=== PATIENT | female | born 2000 | race Caucasian/White ===

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

== ENCOUNTER 2018-01-17 15:23 | Emergency (ER) | payer MEDICAID ==
[2018-01-17 15:37] VITALS: BP 111/61
--- NOTE | 2018-01-17 17:05 | EDM.PDOC ---
ED HPI GENERAL MEDICAL PROBLEM - General Chief Complaint: General Stated Complaint: LIGHTHEADED;MIGRAINE Time Seen by Provider: 01/17/18 16:50 Source of Information: Reports: Patient, Old Records, RN History Limitations: Reports: No Limitations - History of Present Illness INITIAL COMMENTS - FREE TEXT/NARRATIVE: 17 yo female in her first trimester of presents with vertigo earlier today. Is feeling a little better now. Didn't try the clinic. Onset: Today Onset Date: 01/17/18 Duration: Minutes:, Waxing/Waning Location: Reports: Head Severity: Mild Improves with: Reports: Other (? time) Worsens with: Reports: Movement Context: Reports: Other () Associated Symptoms: Reports: Nausea/Vomiting (no vomiting). Denies: Fever/ Chills, Syncope Treatments CLASSIFICATIONS OFFICER CC/CM: Reports: Other (see below) (none) - Related Data Allergies Allergy/AdvReac Type Severity Reaction Status Date / Time No Known Allergies Allergy Verified 01/17/18 16:15 Home Meds: Home Meds Vits #93/Iron Fum/FA [ Formula Tablet] 1 tab PO DAILY 01/17/18 [History] hydrOXYzine Pamoate [Vistaril] 25 mg PO Q6H PRN #14 cap 01/17/18 [Rx] valACYclovir HCl [Valtrex] 1 tab PO BID 01/17/18 [History] Past Medical History - Past Health History Medical/Surgical History: Denies Medical/Surgical History HEENT History: Reports: None Cardiovascular History: Reports: None Respiratory History: Reports: None Gastrointestinal History: Reports: None Genitourinary History: Reports: None 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: Musculoskeletal History: Reports: Fracture Other Musculoskeletal History: right hand Neurological History: Reports: None Psychiatric History: Reports: None Endocrine/Metabolic History: Reports: None Hematologic History: Reports: None Immunologic History: Reports: None Oncologic (Cancer) History: Reports: None Dermatologic History: Reports: None - Infectious Disease History Infectious Disease History: Reports: None - Past Surgical History Respiratory Surgical History: Reports: None Female Surgical History: Reports: D&C Musculoskeletal Surgical History: Reports: Other (See Below) Other Musculoskeletal Surgeries/Procedures:: surgical repair of right hand fracture Oncologic Surgical History: Reports: None Social & Family History - Tobacco Use Smoking Status *Q: Never Smoker Years of Tobacco use: 5 Packs/Tins Daily: 0.2 Second Hand Smoke Exposure: No - Caffeine Use Caffeine Use: Reports: Coffee, Energy Drinks - Alcohol Use Days Per Week of Alcohol Use: 0 - Recreational Drug Use Recreational Drug Use: No ED ROS GENERAL - Review of Systems Review Of Systems: See Below Constitutional: Reports: No Symptoms HEENT: Reports: No Symptoms Respiratory: Reports: No Symptoms Cardiovascular: Reports: No Symptoms GI/Abdominal: Reports: No Symptoms : Reports: No Symptoms Musculoskeletal: Reports: No Symptoms Skin: Reports: No Symptoms Neurological: Reports: Dizziness. Denies: Headache, Numbness, Tingling, Weakness Psychiatric: Reports: No Symptoms ED EXAM, GENERAL - Physical Exam Exam: See Below Exam Limited By: No Limitations General Appearance: Alert, WD/WN, No Apparent Distress Eye Exam: Bilateral Eye: Normal Inspection, PERRL Ears: Normal External Exam, Normal Canal, Hearing Grossly Normal, Normal TMs Ear Exam: Bilateral Ear: Auricle Normal, Canal Normal, TM normal Nose: Normal Inspection, Normal Mucosa, No Blood Throat/Mouth: Normal Inspection, Normal Lips, Normal Teeth, Normal Oropharynx, Normal Voice, No Airway Compromise Head: Atraumatic, Normocephalic Neck: Normal Inspection, Supple, Non-Tender Respiratory/Chest: No Respiratory Distress, Lungs Clear, Normal Breath Sounds, No Accessory Muscle Use Cardiovascular: Regular Rate, Rhythm, No Edema GI/Abdominal: Normal Bowel Sounds, Soft, Non-Tender, No Distention Back Exam: Normal Inspection. No: CVA Tenderness (R), CVA Tenderness (L) Extremities: Normal Inspection, Normal Range of Motion, Non-Tender, No Pedal Edema Neurological: Alert, Oriented, CN II-XII Intact, Normal Cognition, No Motor/ Sensory Deficits Psychiatric: Normal Affect, Normal Mood Skin Exam: Warm, Dry, Intact, Normal Color, No Rash Lymphatic: No Adenopathy Course - Vital Signs Last Recorded V/S: Last Vital Signs Temp 37.0 C 01/17/18 16:14 Pulse 64 01/17/18 16:14 Resp 16 01/17/18 16:14 BP 111/61 01/17/18 16:14 Pulse Ox 98 01/17/18 16:14 Orthostatic Blood Pressure [ 110/65 Standing] Orthostatic Blood Pressure [ 110/59 Sitting] Orthostatic Blood Pressure [ 111/61 Supine] - Orders/Labs/Meds Orders: Active Orders 24 hr Category Date Time Status Orthostatic Vital Signs [RC] ASDIRECTED Care 01/17/18 15:46 Active Departure - Departure Time of Disposition: 17:04 Disposition: Home, Self-Care 01 Condition: Good Clinical Impression: BPV (benign positional vertigo) Qualifiers: Laterality: unspecified laterality Qualified Code(s): H81.10 - Benign paroxysmal vertigo, unspecified ear - Discharge Information Prescriptions: hydrOXYzine Pamoate [Vistaril] 25 mg PO Q6H PRN #14 cap PRN Reason: Dizziness Referrals: Precious Castro CNM [Primary Care Provider] - Forms: ED Department Discharge Additional Instructions: Take Vistaril as needed for dizziness. F/U in the clinic for recheck. Return if a lot worse. - My Orders Last 24 Hours: My Active Orders 01/17/18 15:46 Orthostatic Vital Signs [RC] ASDIRECTED - Assessment/Plan Last 24 Hours: My Active Orders 01/17/18 15:46 Orthostatic Vital Signs [RC] ASDIRECTED
== END 2018-01-17 17:08 | disposition home or self-care (01) ==
LOC: JP.ED 15:23
DX: O99.89 Other specified diseases and conditions complicating pregnancy, childbirth and the puerperium (principal); H81.10 Benign paroxysmal vertigo, unspecified ear
CPT/HCPCS: 99284

== ENCOUNTER 2019-06-28 12:42 | Emergency (ER) | payer MEDICAID ==
[2019-06-28 13:01] VITALS: BP 105/60; PULSE 92
--- NOTE | 2019-06-28 13:17 | EDM.PDOC ---
ED HPI GENERAL MEDICAL PROBLEM - General Chief Complaint: Skin Complaint Stated Complaint: HIVES Time Seen by Provider: 06/28/19 13:04 Source of Information: Reports: Patient History Limitations: Reports: No Limitations - History of Present Illness INITIAL COMMENTS - FREE TEXT/NARRATIVE: 19 y/o female presents with itchy red rash on her extremities that started yesterday. She has a history of seasonal allergies. She denies any triggers including, new meds, abx, NSAIDs, new foods, nuts, fish or berries. She denies dyspnea or GI problems. She denies fever or blisters. 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-07/25/2018 Musculoskeletal History: Reports: Fracture Other Musculoskeletal History: right hand Neurological History: Reports: None Psychiatric History: Reports: None Endocrine/Metabolic History: Reports: None Hematologic History: Reports: None Immunologic History: Reports: None Oncologic (Cancer) History: Reports: None Dermatologic History: Reports: None - Infectious Disease History Infectious Disease History: Reports: Herpes - Past Surgical History Respiratory Surgical History: Reports: None Female Surgical History: Reports: D&C Musculoskeletal Surgical History: Reports: Other (See Below) Other Musculoskeletal Surgeries/Procedures:: surgical repair of right hand fracture Oncologic Surgical History: Reports: None Social & Family History - Family History Family Medical History: Noncontributory - Caffeine Use Caffeine Use: Reports: Coffee ED ROS GENERAL - Review of Systems Review Of Systems: See Below Constitutional: Denies: Fever, Chills, Diaphoresis HEENT: Denies: Eye Discharge, Rhinitis, Sinus Problem, Throat Pain, Throat Swelling Respiratory: Denies: Shortness of Breath, Wheezing, Cough Cardiovascular: Reports: No Symptoms GI/Abdominal: Denies: Abdominal Pain, Diarrhea, Difficulty Swallowing, Nausea Skin: Reports: Other (She has hives on her extremities) Neurological: Reports: No Symptoms Psychiatric: Reports: No Symptoms Hematologic/Lymphatic: Reports: No Symptoms ED EXAM, SKIN/RASH Exam: See Below Exam Limited By: No Limitations General Appearance: Alert, WD/WN, No Apparent Distress Nose: No: Nasal Swelling, Nasal Drainage, Clear Rhinorrhea Throat/Mouth: Normal Inspection Respiratory/Chest: No Respiratory Distress, Lungs Clear, Normal Breath Sounds, No Accessory Muscle Use. No: Wheezing Skin: Other (Hives on extremities.) Course - Vital Signs Last Recorded V/S: Last Vital Signs Temp 36.6 C 06/28/19 13:05 Pulse 92 06/28/19 13:05 Resp 16 06/28/19 13:05 BP 105/60 06/28/19 13:05 Pulse Ox 97 06/28/19 13:05 - Re-Assessments/Exams Free Text/Narrative Re-Assessment/Exam: 06/28/19 13:30 The patient was examined. The diagnosis and prognosis was discussed. She will take Benadryl every 6 hours as needed for itching and can add Zyrtec or Claritin once a day. She will fill an Rx for tapering dose of prednisone on Sunday if not better. She can f/u in the clinic if not better mid week. Return to the ER as needed for problems or concerns. Departure - Departure Time of Disposition: 13:20 Disposition: Home, Self-Care 01 Condition: Good Clinical Impression: Idiopathic urticaria - Discharge Information *PRESCRIPTION DRUG MONITORING PROGRAM REVIEWED*: Not Applicable *COPY OF PRESCRIPTION DRUG MONITORING REPORT IN PATIENT SHERMAN: Not Applicable Instructions: Hives, [id number] Referrals: Precious Castro CNM [Primary Care Provider] - Forms: ED Department Discharge Additional Instructions: Take Benadryl 50 mg every 6 hours as needed for itching and rash. Take Claritin or Zyrtec once daily for itching and rash. Fill the Rx for prednisone on Sunday if your aren't improving. Follow up with your primary care provider if your aren't improving by Sunday. Return to the ER as needed.
== END 2019-06-28 13:32 | disposition home or self-care (01) ==
LOC: JP.ED 12:42
DX: L50.1 Idiopathic urticaria (principal); Z79.899 Other long term (current) drug therapy
CPT/HCPCS: 99282

== ENCOUNTER 2020-09-11 07:52 | Emergency (ER) | payer MEDICAID ==
[2020-09-11 08:15] VITALS: BP 102/62; PULSE 72
--- NOTE | 2020-09-11 08:33 | EDM.PDOC ---
ED HPI GENERAL MEDICAL PROBLEM - General Chief Complaint: Abdominal Pain Stated Complaint: CRAMPING MAYBE PG Time Seen by Provider: 09/11/20 08:10 Source of Information: Reports: Patient History Limitations: Reports: No Limitations - History of Present Illness INITIAL COMMENTS - FREE TEXT/NARRATIVE: 20-year-old female with 3 previous pregnancies, 2 live births and 1 miscarriage presents with pelvic cramping and bleeding for the past 48 hours. She went in to the clinic yesterday afternoon after having a positive at home. Some blood tests were drawn and she was told she is either "miscarrying or having a very early ". She was told if she gets worse to go to the emergency room. Today the cramping seems harder with slightly more bleeding, no fevers or chills or urinary symptoms. Denies nausea or vomiting. She does not think she can go to work tonight. Onset: Gradual Duration: Day(s): (2 days) Associated Symptoms: Reports: Malaise. Denies: Chest Pain, Cough, Nausea/Vomiting, Shortness of Breath - Related Data Allergies Allergy/AdvReac Type Severity Reaction Status Date / Time No Known Allergies Allergy Verified 09/11/20 08:00 Home Meds: Home Meds valACYclovir HCl [Valtrex] 1 tab PO BID 01/17/18 [History] FLUoxetine HCl [Prozac] 20 mg PO DAILY 10/07/18 [History] Venlafaxine HCl [Venlafaxine ER] 1 tab PO DAILY 09/11/20 [History] Past Medical History - Past Health History Medical/Surgical History: Denies Medical/Surgical History HEENT History: Reports: None Cardiovascular History: Reports: None Respiratory History: Reports: None Gastrointestinal History: Reports: None Genitourinary History: Reports: None 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: , 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 POWER ENGINEER 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-07/25/2018 Musculoskeletal History: Reports: Fracture Other Musculoskeletal History: right hand Neurological History: Reports: None Psychiatric History: Reports: None Endocrine/Metabolic History: Reports: None Hematologic History: Reports: None Immunologic History: Reports: None Oncologic (Cancer) History: Reports: None Dermatologic History: Reports: None - Infectious Disease History Infectious Disease History: Reports: Herpes - Past Surgical History Respiratory Surgical History: Reports: None Female Surgical History: Reports: D&C Musculoskeletal Surgical History: Reports: Other (See Below) Other Musculoskeletal Surgeries/Procedures:: surgical repair of right hand fracture Oncologic Surgical History: Reports: None Social & Family History - Family History Family Medical History: Noncontributory - Tobacco Use Tobacco Use Status *Q: Current Every Day Tobacco User Years of Tobacco use: 3 Packs/Tins Daily: 0.1 - Caffeine Use Caffeine Use: Reports: Coffee ED ROS GENERAL - Review of Systems Review Of Systems: See Below Constitutional: Reports: Malaise. Denies: Fever, Chills HEENT: Reports: No Symptoms Respiratory: Reports: No Symptoms Cardiovascular: Reports: No Symptoms GI/Abdominal: Reports: Abdominal Pain (Lower abdomen) : Reports: No Symptoms Free Text/Narrative/Comment: According to the patient her last period was 2-1/2 weeks ago and she just stopped her " control" in the last few days ED EXAM, GENERAL - Physical Exam Exam: See Below Exam Limited By: No Limitations General Appearance: Alert, No Apparent Distress Respiratory/Chest: No Respiratory Distress, Lungs Clear Cardiovascular: Regular Rate, Rhythm GI/Abdominal: Soft, Tender (Patient does have tenderness across the lower abdomen but no distention, significant guarding or rebound) Neurological: Alert, Oriented Psychiatric: Normal Affect, Normal Mood Skin Exam: Warm, Dry Course - Vital Signs Last Recorded V/S: Last Vital Signs Temp 97.9 F 09/11/20 08:14 Pulse 72 09/11/20 08:14 Resp 14 09/11/20 08:14 BP 102/62 09/11/20 08:14 Pulse Ox 98 09/11/20 08:14 - Re-Assessments/Exams Free Text/Narrative Re-Assessment/Exam: 09/11/20 08:30 Clinic records were reviewed and her quantitative beta-hCG yesterday was 8. Exp lained to the patient that this is very unlikely a healthy early , and very likely an active spontaneous miscarriage. She was given 10 doses of ketorolac to take 1 every 6 hours and encouraged to return if worsening such as fever, uncontrolled pain or very heavy bleeding. She was also provided a note to be off work for the next couple of nights, and if symptoms actually quiet down and systems resolve she could consider rechecking her beta-hCG next week. Departure - Departure Time of Disposition: 08:49 Disposition: Home, Self-Care 01 Clinical Impression: Spontaneous miscarriage - Discharge Information Instructions: Miscarriage, [id number] Referrals: Precious Castro CNM [Primary Care Provider] - Forms: ED Department Discharge Care Plan Goals: You are likely miscarrying a . Rest this weekend, take 1 pain pill every 6 hours and consider returning if worsening such as very heavy bleeding, fever, or increased pain despite treatment. Also consider rechecking in the clinic next week if symptoms resolve and bleeding stops because it may be reasonable to recheck your beta-hCG level to see if it is climbing. Sepsis Event Note (ED) - Evaluation Sepsis Screening Result: No Definite Risk - Focused Exam Vital Signs: Vital Signs Temp Pulse Resp BP Pulse Ox 09/11/20 08:14 97.9 F 72 14 102/62 98
== END 2020-09-11 08:49 | disposition home or self-care (01) ==
LOC: JP.ED 07:52
DX: O03.9 Complete or unspecified spontaneous abortion without complication (principal); F17.210 Nicotine dependence, cigarettes, uncomplicated
CPT/HCPCS: 99283

== ENCOUNTER 2022-06-17 12:47 | Emergency (ER) | payer MEDICAID, OTHER ==
[2022-06-17 13:17] VITALS: BP 93/50; PULSE 64
[2022-06-17] MEDS ORDERED: Ketorolac 30 MG/ML SDV IM ONE (13:45)
== END 2022-06-17 14:25 | disposition home or self-care (01) ==
LOC: JP.ED 12:47
DX: M25.562 Pain in left knee (principal)
CPT/HCPCS: 96372; 99283; J1885